=== PATIENT | female | born 1950 | race Caucasian/White ===

== ENCOUNTER → 2022-08-21 | Outpatient (CLI) | payer SELFPAY ==
[2022-08-23 12:11] LABS: HSV-1 DNA Negative (Negative); HSV-2 DNA Negative (Negative)
== END | disposition home or self-care (01) ==
LOC: LAB SHORT 14:40
PROVIDERS: Physician Assistant
DX: D48.5 Neoplasm of uncertain behavior of skin (principal); D22.5 Melanocytic nevi of trunk; L57.0 Actinic keratosis; L21.8 Other seborrheic dermatitis; L57.8 Other skin changes due to chronic exposure to nonionizing radiation; L81.4 Other melanin hyperpigmentation; L30.9 Dermatitis, unspecified; L81.0 Postinflammatory hyperpigmentation; L28.0 Lichen simplex chronicus; L08.9 Local infection of the skin and subcutaneous tissue, unspecified; Z71.89 Other specified counseling
CPT/HCPCS: 87070; 87205; 87529

== ENCOUNTER → 2023-04-07 | Outpatient (CLI) | payer MEDICARE ==
[2023-04-07 19:41] LABS: Free Thyroxine 1.13 ng/dL (0.70-1.60)
[2023-04-07 19:45] LABS: Thyroid Stimulating Hormone 0.507 uIU/mL (0.360-4.800); Triiodothyronine, Free 2.45 pg/mL (2.18-3.98)
== END | disposition home or self-care (01) ==
LOC: LAB 16:43 → LAB SHORT 16:43
PROVIDERS: Nurse Practitioner Family
DX: E03.9 Hypothyroidism, unspecified (principal)
CPT/HCPCS: 84439; 84443; 84481

== ENCOUNTER → 2023-05-07 | Outpatient (CLI) | payer MEDICARE ==
[2023-05-07 17:22] LABS: BASOPHILS ABSOLUTE AUTO 0.07 K/mm3 (0.00-0.23); BASOPHILS PERCENT AUTO 1 % (0-2); EOSINOPHILS ABSOLUTE AUTO 0.28 K/mm3 (0.00-0.68); EOSINOPHILS PERCENT AUTO 5 % (0-6); Hematocrit 41.2 % (33.0-51.0); Hemoglobin 13.4 g/dL (11.5-16.0); IMMATURE GRAN ABSOLUTE AUTO 0.01 K/mm3 (0.00-0.10); IMMATURE GRAN PERCENT AUTO 0 % (0-1); LYMPHOCYTES ABSOLUTE AUTO 1.73 K/mm3 (0.84-5.20); LYMPHOCYTES PERCENT AUTO 32 % (21-46); MONOCYTES ABSOLUTE AUTO 0.68 K/mm3 (0.16-1.47); MONOCYTES PERCENT AUTO 13 % (4-13); Mean Corpuscular HGB 27.1 pg (26.0-34.0); Mean Corpuscular HGB Conc 32.5 g/dL (31.5-36.5); Mean Corpuscular Volume 83 fL (80-100); Mean Platelet Volume 9.8 fL (9.1-12.4); NEUTROPHILS ABSOLUTE AUTO 2.68 K/mm3 (1.96-9.15); NEUTROPHILS PERCENT AUTO 49 % (41-73); Platelet Count 282 K/mm3 (150-400); RDW Standard Deviation 52.1 fL (35.1-46.3); Red Blood Cell Count 4.94 M/mm3 (3.80-5.20); White Blood Cell Count 5.45 K/mm3 (4.00-11.30)
== END ==
LOC: LAB SHORT 09:50 → LAB 09:50
PROVIDERS: Nurse Practitioner Family
DX: D48.5 Neoplasm of uncertain behavior of skin (principal)
CPT/HCPCS: 85025; 85651; 86140

== ENCOUNTER → 2023-08-19 | Outpatient (CLI) | payer OTHER ==
[2023-08-19 18:09] LABS: CHOL/HDL RATIO 2.6; Cholesterol 255 mg/dL (50-200); Free Thyroxine 1.15 ng/dL (0.70-1.60); HDL Cholesterol 97 mg/dL (>39); LDL/HDL RATIO 1.4; Low Density Lipoprotein Chol 138 mg/dL (0-110); Magnesium, Blood 2.7 mg/dL (1.6-2.4); Triglycerides 99 mg/dL (30-160); Very Low Density Lipoprot Chol 19 mg/dL (6-32)
[2023-08-19 18:13] LABS: Thyroid Stimulating Hormone 0.858 uIU/mL (0.360-4.800); Triiodothyronine, Free 2.48 pg/mL (2.18-3.98)
[2023-08-21 08:11] LABS: A/G RATIO 2.2 (1.2-2.2); BILIRUBIN, TOTAL 0.4 mg/dL (0.0-1.2); CALCIUM, SERUM 9.7 mg/dL (8.7-10.3); CREATININE, SERUM 0.91 mg/dL (0.57-1.00); GLOBULIN, TOTAL 2.2 g/dL (1.5-4.5); POTASSIUM, SERUM 5.2 mmol/L (3.5-5.2)
== END ==
LOC: LAB SHORT 16:26 → LAB 16:26
PROVIDERS: Family Medicine
DX: E03.9 Hypothyroidism, unspecified (principal)
CPT/HCPCS: 80053; 80061; 83735; 84439; 84443; 84481

== ENCOUNTER 2024-02-17 06:09 | Day surgery (SDC) | payer OTHER ==
[2024-02-17] VITALS (16 sets, daily range): BP systolic 73–158; BP diastolic 54–90
[~2024-02-17] VITALS: Ht 149.9 cm; Wt 48.3 kg
[~2024-02-17 06:09] MED LIST: ASCORBIC ACID500 MG PO; ASPI81CH PO; AZO PO; IRON PO; K-RIGHT SOFTGE1 EACH PO; LEVSOD100 PO; PREMARIN VAG; PSEU120ER PO; VITAMIN A PO; ZINC15 PO
[2024-02-17] MEDS ORDERED: CeFAZolin Sodium 2,000 MG in NS 100 ML IV SCH ×2 (06:20→16:00)
[2024-02-17] MEDS ORDERED: Chlorhexidine Mouth Care 15 ML UDC MT SCH (06:20)
[2024-02-17] MEDS ORDERED: Lactated Ringer's 1,000 ML IV SCH ×2 (06:20→09:25)
[2024-02-17] MEDS ORDERED: Tranexamic Acid 100 ML IV SCH (06:31)
[2024-02-17] MEDS ORDERED: OxyCODONE HCL 10 MG TABCR PO SCH (06:40)
[2024-02-17] MEDS ORDERED: Acetaminophen 500 MG Tab PO SCH (06:40)
[2024-02-17] MEDS ORDERED: Ropivacaine 0.5% HCl/Pf 123.125 MG,EPINEPHrine HCL 0.25 MG,Ketorolac Tromethamine 15 MG... INFIL SCH (06:40)
[2024-02-17] MEDS ORDERED: ePHEDrine Sulfate 50 MG/ML 1ML Injection ONE (06:56)
[2024-02-17] MEDS ORDERED: Phenylephrine HCl 100 MCG/ML-NS 10MLSYR (1MG/10ML) ONE (06:56)
[2024-02-17] MEDS ORDERED: Dexamethasone Sod Phos 10 MG/ML 1ML VIAL ONE (07:03)
[2024-02-17] MEDS ORDERED: Ondansetron HCl 2 MG / ML 2ML Vial ONE (07:03)
--- NOTE | 2024-02-17 07:24 | NUR ---
DR BRUNER NOTIFIED THAT PATIENT DECLINED ACETAMINOPHEN AND OXYCODONE AND ALSO DID NOT USE CHLORHEXIDINE SHOWERS AT HOME, WIPE IN PRE-OP OR PERIDEX MOUTHWASH ORDERED DUE TO ITCHING REACTION.
[2024-02-17] MEDS ORDERED: Midazolam HCl 1MG / ML 2ML Vial ONE (07:51)
[2024-02-17] MEDS ORDERED: propofoL 20 ML IV ONE (07:52)
[2024-02-17] MEDS ORDERED: Glycopyrrolate 0.2 MG/ML 5ML VIAL ONE (08:22)
[2024-02-17] MEDS ORDERED: Labetalol HCL 5 MG/ML 4ML Injection (Single Dose) ONE (08:48)
[2024-02-17] MEDS ORDERED: Lactated Ringer's 1,000 ML IV ONE (09:11)
[2024-02-17] MEDS ORDERED: ESTROGENS CONJUGATED VAG SCH (09:15)
[2024-02-17] MEDS ORDERED: Promethazine HCl 25 MG Tab PO PRN (09:20)
[2024-02-17] MEDS ORDERED: Prochlorperazine Edisylate 10 mg Vial IV PRN (09:20)
[2024-02-17] MEDS ORDERED: Magnesium Hydroxide Conc 10 ML UDC PO PRN (09:20)
[2024-02-17] MEDS ORDERED: Bisacodyl 10 MG Supp PR PRN (09:20)
[2024-02-17] MEDS ORDERED: DiphenhydrAMINE HCL 25 MG Cap PO PRN (09:20)
[2024-02-17] MEDS ORDERED: TraMADol HCl 50 MG Tab PO PRN (09:25)
[2024-02-17] MEDS ORDERED: Ondansetron HCl 2 MG / ML 2ML Vial IV PRN (09:25)
[2024-02-17] MEDS ORDERED: Metoclopramide HCl 5MG / ML 2ML Vial IV PRN (09:25)
[2024-02-17] MEDS ORDERED: Ketorolac Tromethamine 15mg Vial IV SCH (12:00)
--- NOTE | 2024-02-17 19:54 | NUR ---
PT ARRIVED TO UNIT AT APROX 1045 FROM PACU POD 1 L ERMELINDA. PT AQUACEL DRESSING TO L ANTERIOR HIP C/D/I. PT CLEARED PT, VOIDING, PAIN WELL MANAGED WITH 25MG TRAMADOL AND SCHEDULED TORADOL. PT TOLERATING REGULAR DIET. PT WAS DISCHARGED HOME AT APROX 1545. PT WAS GIVEN WRITTEN AND VERBAL DISCHARGE INSTRUCTIONS AND VERBALIZED UNDERSTANDING OF THESE INSTRUCTIONS. IV WAS REMOVED, TOLERATED WELL. WC TO CAR.
[2024-02-17] MEDS ORDERED: Docusate Sodium 100 MG Cap PO SCH (21:00)
[2024-02-18] MEDS ORDERED: SYNTHROID 0.1 MG PO SCH (06:00)
[2024-02-18] MEDS ORDERED: Levothyroxine Sodium 0.1 MG Tab PO SCH (06:00)
[2024-02-18] MEDS ORDERED: Aspirin 81 MG Chew PO SCH (09:00)
[2024-02-18] MEDS ORDERED: Pseudoephedrine HCl 30 MG Tab PO SCH (09:00)
[2024-02-18] MEDS ORDERED: Ascorbic Acid 500 MG Tab PO SCH (09:00)
[2024-02-20] MEDS ORDERED: Ferrous Sulfate 325 MG Tab PO SCH (09:15)
== END 2024-02-17 18:54 | disposition home or self-care (01) ==
LOC: ORSCMMR 06:09 → ORD 07:30 → SURS 10:05 → ORSCMMR 18:54
PROVIDERS: Orthopaedic Surgery
PROC: 0SRB0JZ Replacement of Left Hip Joint with Synthetic Substitute, Open Approach (ICD-10-PCS; principal; 2024-02-17 07:30)
DX: M16.12 Unilateral primary osteoarthritis, left hip (principal); Z96.641 Presence of right artificial hip joint; Z79.899 Other long term (current) drug therapy; Z85.828 Personal history of other malignant neoplasm of skin
CPT/HCPCS: 72170; 97110; 97116; 97162; A9270; C1776; J0171; J0690; J0735; J1100; J1885; J2250; J2371; J2405; J2704; J2795; J7060; J7120

== ENCOUNTER → 2024-06-14 | Outpatient (CLI) | payer OTHER ==
[2024-06-14 17:36] LABS: Free Thyroxine 1.26 ng/dL (0.70-1.60)
[2024-06-14 17:47] LABS: Albumin, Blood 3.5 g/dL (3.4-5.0); Albumin/Globulin Ratio 0.9 (0.8-1.8); Bilirubin, Total 0.2 mg/dL (0.1-1.0); Bun/Creatinine Ratio 38.1 (12.0-20.0); Calcium, Blood 9.5 mg/dL (8.5-10.1); Creatinine, Blood 0.79 mg/dL (0.40-1.00); Potassium, Blood 4.2 mmol/L (3.5-5.5); Thyroid Stimulating Hormone 0.236 uIU/mL (0.360-4.800); Total Protein, Blood 7.5 g/dL (6.4-8.2)
[2024-06-15 15:26] LABS: THYROID PEROXIDASE (TPO) AB 0.6 IU/mL (0.0-9.0)
== END | disposition home or self-care (01) ==
LOC: LAB 10:30 → LAB SHORT 10:30
PROVIDERS: Nurse Practitioner Family
DX: E03.9 Hypothyroidism, unspecified (principal); N28.1 Cyst of kidney, acquired
CPT/HCPCS: 80053; 84439; 84443; 86376

== ENCOUNTER → 2024-07-19 | Outpatient (CLI) | payer OTHER ==
[2024-07-19 12:10] LABS: Protein, Urine Quantitative 5.1 mg/dL (0.0-11.9)
[2024-07-19 12:53] LABS: Microalbumin, Urine Quant. <5.000 mg/L (0.000-20.000)
== END | disposition home or self-care (01) ==
LOC: LAB SHORT 09:24 → LAB 09:24
PROVIDERS: Internal Medicine Nephrology
DX: N18.2 Chronic kidney disease, stage 2 (mild) (principal); D63.1 Anemia in chronic kidney disease; N25.81 Secondary hyperparathyroidism of renal origin; E55.9 Vitamin D deficiency, unspecified; E78.00 Pure hypercholesterolemia, unspecified; D51.8 Other vitamin B12 deficiency anemias; D52.8 Other folate deficiency anemias; D50.9 Iron deficiency anemia, unspecified; R76.9 Abnormal immunological finding in serum, unspecified; R94.5 Abnormal results of liver function studies; R94.6 Abnormal results of thyroid function studies
CPT/HCPCS: 81050; 82043; 82570; 84156

== ENCOUNTER → 2024-10-25 | Outpatient (CLI) | payer OTHER ==
[2024-10-26 10:32] LABS: Free Thyroxine 1.17 ng/dL (0.70-1.60); Thyroid Stimulating Hormone 0.195 uIU/mL (0.360-4.800)
== END ==
LOC: LAB SHORT 10:10 → LAB 10:10
PROVIDERS: Nurse Practitioner Family
DX: E03.9 Hypothyroidism, unspecified (principal)
CPT/HCPCS: 84439; 84443

== ENCOUNTER → 2024-11-02 | Outpatient (CLI) | payer OTHER | LOC: LAB SHORT 16:00 → LAB 16:00 | DX: N39.0 Urinary tract infection, site not specified (principal) | CPT/HCPCS: 87086 ==

== ENCOUNTER → 2024-11-29 | Outpatient (CLI) | payer OTHER ==
[2024-11-29 18:56] LABS: Free Thyroxine 1.01 ng/dL (0.70-1.60); Percent Saturation 31.8 % (15.0-50.0); Thyroid Stimulating Hormone 0.634 uIU/mL (0.360-4.800)
== END ==
LOC: LAB SHORT 17:11 → LAB 17:11
PROVIDERS: Nurse Practitioner Family
DX: E61.1 Iron deficiency (principal); E03.9 Hypothyroidism, unspecified
CPT/HCPCS: 82728; 83540; 83550; 84439; 84443

== ENCOUNTER → 2025-05-24 | Outpatient (CLI) | payer OTHER ==
[2025-05-25 22:21] LABS: Thyroid Stimulating Hormone 31.3 uIU/mL (0.360-4.800)
== END | disposition home or self-care (01) ==
LOC: LAB SHORT 16:35 → LAB 16:35 → LAB SHORT 05-25 16:32
PROVIDERS: Family Medicine
DX: E03.9 Hypothyroidism, unspecified (principal)
CPT/HCPCS: 84439; 84443